=== PATIENT | male | born 1940 | race Caucasian/White ===

== ENCOUNTER 2023-06-23 05:21 | Emergency (ER) | payer OTHER, SELFPAY ==
[2023-06-23] VITALS (26 sets, daily range): BP systolic 85–149; BP diastolic 54–126; PULSE 78–178; RESP 14; TEMP 35.9; O2SAT 91–99
--- NOTE | 2023-06-23 06:09 | ED_ITS ---
HPI - General Adult General Chief complaint: Weakness <Carol Rodriguez MD - Last Filed: 06/23/23 23:55> Stated complaint: Nauseas Throwing up Blood/Pain <Carol Rodriguez MD - Last Filed: 06/23/23 23:55> Time Seen by Provider: 06/23/23 05:35 <Carol Rodriguez MD - Last Filed: 06/23/23 23:55> Source: patient and family <Carol Rodriguez MD - Last Filed: 06/23/23 23:55> Mode of arrival: EMS <Carol Rodriguez MD - Last Filed: 06/23/23 23:55> Limitations: physical limitation <Carol Rodriguez MD - Last Filed: 06/23/23 23:55> History of Present Illness HPI narrative: 82-year-old male with history of esophageal cancer, recent recurrent pneumonias and marked deconditioning presents to the emergency department. He tells me that he has from [place] and he has been managed mainly through [facility] in the last several months. He was diagnosed with esophageal cancer back in July, ultimately underwent resection, has been declining significantly since December. Last month, he was hospitalized a couple of times for aspiration pneumonias and has been made NPO. He has a J-tube in place and receives tube feedings. He has been pondering wanting to go on hospice for the last couple of weeks. He was told at his last discharge on June 06 that he will continue to aspirate even if he has the J-tube. He knows that he will continue getting recurrent pneumonias. He has made his peace with his health and would like to stop his medications, receive pain control and pass in the hospital. They have not looked into home hospice or an inpatient hospice center. His daughter accompanies him today and is respectful of his wishes though she is appropriately sad. He reports pain in the bilateral but area from his ulcers. Family agrees that he has been getting significantly weaker over the last few weeks. No bleeding has been noted, no vomiting or diarrhea. He is a heavy assist of 2 with all cares currently. Past medical history is notable for a flutter, still is on chronic anticoagulation for this. Esophageal cancer with resection, recurrent aspiration pneumonias, j-tube. Home medications are Tylenol, Eliquis, vitamin- D, digoxin, iron, metoprolol, pantoprazole. He is not on chronic pain medication or anti nausea medication. He has not been recently receiving any type of chemotherapy. His current nutrition plan is all through the j-tube. <Carol Rodriguez MD - Last Filed: 06/23/23 23:55> Related Data Home medications: Previous Rx's Medication Instructions Recorded zaleplon 5 mg capsule 5 mg PO QHS PRN sleep #14 caps 06/23/23 <Carol Rodriguez MD - Last Filed: 06/23/23 23:55> Allergies/adverse reactions: Allergies Allergy/AdvReac Type Severity Reaction Status Date / Time No Known Drug Allergies Allergy Unknown Unverified 01/13/23 15:31 <Carol Rodriguez MD - Last Filed: 06/23/23 23:55> [facility] Medical History: Medical History Hypertension ?I10 - Essential (primary) hypertension (ICD-10) Pacemaker ?Z95.0 - Presence of cardiac pacemaker (ICD-10) Moderate aortic stenosis ?I35.0 - Nonrheumatic aortic (valve) stenosis (ICD-10) Chronic anemia ?D64.9 - Anemia, unspecified (ICD-10) Gastric ulcer ?K25.9 - Gastric ulcer, unspecified as acute or chronic, without hemorrhage or perforation (ICD-10) 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.4 - Other artificial openings of gastrointestinal tract status (ICD-10) Pneumomediastinum ?J98.2 - Interstitial emphysema (ICD-10) Aspiration pneumonia ?J69.0 - Pneumonitis due to inhalation of food and vomit (ICD-10) Acute hypoxic respiratory failure ?J96.01 - Acute respiratory failure with hypoxia (ICD-10) Severe malnutrition ?E43 - Unspecified severe protein-calorie malnutrition (ICD-10) H/O sepsis ?Z86.19 - Personal history of other infectious and parasitic diseases (ICD- 10) Atrial flutter ?I48.92 - Unspecified atrial flutter (ICD-10) Esophagus cancer ?C15.9 - Malignant neoplasm of esophagus, unspecified (ICD-10) <Carol Rodriguez MD - Last Filed: 06/23/23 23:55> Social History: Social History Smoking Status: Never smoker Do you use any of these nicotine containing products: None Second hand tobacco smoke exposure: No How often do you have a drink containing alcohol: never AUDIT-C Alcohol total score: 0 Non-prescribed substance use: denies use service: No <Carol Rodriguez MD - Last Filed: 06/23/23 23:55> Exam Const: Vital Signs, click to edit/add: Vital Signs - 24 hr 06/23/23 05:32 06/23/23 05:34 06/23/23 05:35 Temperature 96.6 F L Pulse Rate 160 H 161 H Pulse Rate [Left P ulse Oximeter] 178 H Respiratory Rate 14 Blood Pressure 138/114 H Blood Pressure [Ri ght Upper Arm] 135/111 H Pulse Oximetry 99 93 93 Oxygen Delivery Me thod Room Air Oxygen Flow Rate 06/23/23 05:45 06/23/23 05:46 06/23/23 06:00 Temperature Pulse Rate 130 H 112 H 172 H Pulse Rate [Left P ulse Oximeter] Respiratory Rate Blood Pressure 149/126 H Blood Pressure [Ri ght Upper Arm] Pulse Oximetry 95 95 94 Oxygen Delivery Me thod Oxygen Flow Rate 06/23/23 06:01 06/23/23 06:02 06/23/23 06:15 Temperature Pulse Rate 154 H 94 Pulse Rate [Left P ulse Oximeter] Respiratory Rate Blood Pressure 144/124 H Blood Pressure [Ri ght Upper Arm] Pulse Oximetry 94 91 Oxygen Delivery Me thod Oxygen Flow Rate 06/23/23 06:17 06/23/23 06:30 06/23/23 06:32 Temperature Pulse Rate 92 92 91 Pulse Rate [Left P ulse Oximeter] Respiratory Rate Blood Pressure 96/62 97/58 L Blood Pressure [Ri ght Upper Arm] Pulse Oximetry 93 93 94 Oxygen Delivery Me thod Oxygen Flow Rate 06/23/23 06:45 06/23/23 06:47 06/23/23 06:48 Temperature Pulse Rate 85 96 92 Pulse Rate [Left P ulse Oximeter] Respiratory Rate Blood Pressure 100/54 L Blood Pressure [Ri ght Upper Arm] Pulse Oximetry 96 95 95 Oxygen Delivery Me thod Oxygen Flow Rate 06/23/23 07:00 06/23/23 07:01 06/23/23 07:15 Temperature Pulse Rate 78 98 94 Pulse Rate [Left P ulse Oximeter] Respiratory Rate Blood Pressure 92/57 L Blood Pressure [Ri ght Upper Arm] Pulse Oximetry 95 93 97 Oxygen Delivery Me thod Oxygen Flow Rate 06/23/23 07:16 06/23/23 07:17 06/23/23 07:30 Temperature Pulse Rate 92 91 93 Pulse Rate [Left P ulse Oximeter] Respiratory Rate Blood Pressure 98/59 L Blood Pressure [Ri ght Upper Arm] Pulse Oximetry 96 96 93 Oxygen Delivery Me thod Oxygen Flow Rate 06/23/23 07:32 06/23/23 07:33 06/23/23 09:15 Temperature Pulse Rate 92 90 Pulse Rate [Left P ulse Oximeter] Respiratory Rate Blood Pressure 100/60 Blood Pressure [Ri ght Upper Arm] Pulse Oximetry 94 96 97 Oxygen Delivery Me thod Nasal Cannula Oxygen Flow Rate 2 06/23/23 10:55 06/23/23 10:57 Temperature Pulse Rate Pulse Rate [Left P ulse Oximeter] 86 Respiratory Rate Blood Pressure 85/62 L Blood Pressure [Ri ght Upper Arm] Pulse Oximetry 97 Oxygen Delivery Me thod Nasal Cannula Oxygen Flow Rate 2 <Carol Rodriguez MD - Last Filed: 06/23/23 23:55> Vital Signs, click to edit/add: Vital Signs - 24 hr 06/23/23 05:32 06/23/23 05:34 06/23/23 05:35 Temperature 96.6 F L Pulse Rate 160 H 161 H Pulse Rate [Left P ulse Oximeter] 178 H Respiratory Rate 14 Blood Pressure 138/114 H Blood Pressure [Ri ght Upper Arm] 135/111 H Pulse Oximetry 99 93 93 Oxygen Delivery Me thod Room Air Oxygen Flow Rate 06/23/23 05:45 06/23/23 05:46 06/23/23 06:00 Temperature Pulse Rate 130 H 112 H 172 H Pulse Rate [Left P ulse Oximeter] Respiratory Rate Blood Pressure 149/126 H Blood Pressure [Ri ght Upper Arm] Pulse Oximetry 95 95 94 Oxygen Delivery Me thod Oxygen Flow Rate 06/23/23 06:01 06/23/23 06:02 06/23/23 06:15 Temperature Pulse Rate 154 H 94 Pulse Rate [Left P ulse Oximeter] Respiratory Rate Blood Pressure 144/124 H Blood Pressure [Ri ght Upper Arm] Pulse Oximetry 94 91 Oxygen Delivery Me thod Oxygen Flow Rate 06/23/23 06:17 06/23/23 06:30 06/23/23 06:32 Temperature Pulse Rate 92 92 91 Pulse Rate [Left P ulse Oximeter] Respiratory Rate Blood Pressure 96/62 97/58 L Blood Pressure [Ri ght Upper Arm] Pulse Oximetry 93 93 94 Oxygen Delivery Me thod Oxygen Flow Rate 06/23/23 06:45 06/23/23 06:47 06/23/23 06:48 Temperature Pulse Rate 85 96 92 Pulse Rate [Left P ulse Oximeter] Respiratory Rate Blood Pressure 100/54 L Blood Pressure [Ri ght Upper Arm] Pulse Oximetry 96 95 95 Oxygen Delivery Me thod Oxygen Flow Rate 06/23/23 07:00 06/23/23 07:01 06/23/23 07:15 Temperature Pulse Rate 78 98 94 Pulse Rate [Left P ulse Oximeter] Respiratory Rate Blood Pressure 92/57 L Blood Pressure [Ri ght Upper Arm] Pulse Oximetry 95 93 97 Oxygen Delivery Me thod Oxygen Flow Rate 06/23/23 07:16 06/23/23 07:17 06/23/23 07:30 Temperature Pulse Rate 92 91 93 Pulse Rate [Left P ulse Oximeter] Respiratory Rate Blood Pressure 98/59 L Blood Pressure [Ri ght Upper Arm] Pulse Oximetry 96 96 93 Oxygen Delivery Me thod Oxygen Flow Rate 06/23/23 07:32 06/23/23 07:33 06/23/23 09:15 Temperature Pulse Rate 92 90 Pulse Rate [Left P ulse Oximeter] Respiratory Rate Blood Pressure 100/60 Blood Pressure [Ri ght Upper Arm] Pulse Oximetry 94 96 97 Oxygen Delivery Me thod Nasal Cannula Oxygen Flow Rate 2 06/23/23 10:55 06/23/23 10:57 Temperature Pulse Rate Pulse Rate [Left P ulse Oximeter] 86 Respiratory Rate Blood Pressure 85/62 L Blood Pressure [Ri ght Upper Arm] Pulse Oximetry 97 Oxygen Delivery Me thod Nasal Cannula Oxygen Flow Rate 2 <Sintia Calix MD - Last Filed: 06/23/23 16:11> Vital Signs, click to edit/add: Vital Signs - 24 hr 06/23/23 05:32 06/23/23 05:34 06/23/23 05:35 Temperature 96.6 F L Pulse Rate 160 H 161 H Pulse Rate [Left P ulse Oximeter] 178 H Respiratory Rate 14 Blood Pressure 138/114 H Blood Pressure [Ri ght Upper Arm] 135/111 H Pulse Oximetry 99 93 93 Oxygen Delivery Me thod Room Air Oxygen Flow Rate 06/23/23 05:45 06/23/23 05:46 06/23/23 06:00 Temperature Pulse Rate 130 H 112 H 172 H Pulse Rate [Left P ulse Oximeter] Respiratory Rate Blood Pressure 149/126 H Blood Pressure [Ri ght Upper Arm] Pulse Oximetry 95 95 94 Oxygen Delivery Me thod Oxygen Flow Rate 06/23/23 06:01 06/23/23 06:02 06/23/23 06:15 Temperature Pulse Rate 154 H 94 Pulse Rate [Left P ulse Oximeter] Respiratory Rate Blood Pressure 144/124 H Blood Pressure [Ri ght Upper Arm] Pulse Oximetry 94 91 Oxygen Delivery Me thod Oxygen Flow Rate 06/23/23 06:17 06/23/23 06:30 06/23/23 06:32 Temperature Pulse Rate 92 92 91 Pulse Rate [Left P ulse Oximeter] Respiratory Rate Blood Pressure 96/62 97/58 L Blood Pressure [Ri ght Upper Arm] Pulse Oximetry 93 93 94 Oxygen Delivery Me thod Oxygen Flow Rate 06/23/23 06:45 06/23/23 06:47 06/23/23 06:48 Temperature Pulse Rate 85 96 92 Pulse Rate [Left P ulse Oximeter] Respiratory Rate Blood Pressure 100/54 L Blood Pressure [Ri ght Upper Arm] Pulse Oximetry 96 95 95 Oxygen Delivery Me thod Oxygen Flow Rate 06/23/23 07:00 06/23/23 07:01 06/23/23 07:15 Temperature Pulse Rate 78 98 94 Pulse Rate [Left P ulse Oximeter] Respiratory Rate Blood Pressure 92/57 L Blood Pressure [Ri ght Upper Arm] Pulse Oximetry 95 93 97 Oxygen Delivery Me thod Oxygen Flow Rate 06/23/23 07:16 06/23/23 07:17 06/23/23 07:30 Temperature Pulse Rate 92 91 93 Pulse Rate [Left P ulse Oximeter] Respiratory Rate Blood Pressure 98/59 L Blood Pressure [Ri ght Upper Arm] Pulse Oximetry 96 96 93 Oxygen Delivery Me thod Oxygen Flow Rate 06/23/23 07:32 06/23/23 07:33 06/23/23 09:15 Temperature Pulse Rate 92 90 Pulse Rate [Left P ulse Oximeter] Respiratory Rate Blood Pressure 100/60 Blood Pressure [Ri ght Upper Arm] Pulse Oximetry 94 96 97 Oxygen Delivery Me thod Nasal Cannula Oxygen Flow Rate 2 06/23/23 10:55 06/23/23 10:57 Temperature Pulse Rate Pulse Rate [Left P ulse Oximeter] 86 Respiratory Rate Blood Pressure 85/62 L Blood Pressure [Ri ght Upper Arm] Pulse Oximetry 97 Oxygen Delivery Me thod Nasal Cannula Oxygen Flow Rate 2 <Silvino Fisher DO - Last Filed: 06/23/23 19:10> Other: Cachectic, weak man. It is quite clear that even speaking is a massive struggle. He is very polite and respectful and every way I asked him about his end of life cares he reiterates that he would like to be on comfort cares and he would like something to drink. <Carol Rodriguez MD - Last Filed: 06/23/23 23:55> HENMT: Common normals: normocephalic <Carol Rodriguez MD - Last Filed: 06/23/23 23:55> Head and scalp: normocephalic <Carol Rodriguez MD - Last Filed: 06/23/23 23:55> Other: Dry mucous membranes. No obvious oral ulcers <Carol Rodriguez MD - Last Filed: 06/23/23 23:55> Eye: Other: Eyes are very sunken but normal pupils, extraocular movements. <Carol Rodriguez MD - Last Filed: 06/23/23 23:55> Neck & C-Spine: Common normals: no lymphadenopathy <Carol Rodriguez MD - Last Filed: 06/23/23 23:55> Resp: Other: Decreased respirations in the bases, increased respiratory effort. <Carol Rodriguez MD - Last Filed: 06/23/23 23:55> Cardio: Other: Initially tachycardic. When I was repositioning him, he seemed to convert out of his a flutter in into normal sinus rhythm at about 95. <Carol Rodriguez MD - Last Filed: 06/23/23 23:55> GI: Common normals: Normal to inspection, nondistended, normoactive bowel sounds present, soft to palpation and no hepatosplenomegaly <Carol Rodriguez MD - Last Filed: 06/23/23 23:55> Palpation: soft and no hepatosplenomegaly <Carol Rodriguez MD - Last Filed: 06/23/23 23:55> Other: J-tube with no leaking, surrounding redness or signs of irritation. <Carol Rodriguez MD - Last Filed: 06/23/23 23:55> Back & Pelvis: Other: Buttocks knees examining, thought best to do when we are transferring patient to medical unit rather than multiple exams as this will be very taxing on patient. <Carol Rodriguez MD - Last Filed: 06/23/23 23:55> Extremity: Common normals: no pedal edema <Carol Rodriguez MD - Last Filed: 06/23/23 23:55> Other: Capillary refill is around 3 seconds <Carol Rodriguez MD - Last Filed: 06/23/23 23:55> Neuro: Other: Global weakness but no specific deficits <Carol Rodriguez MD - Last Filed: 06/23/23 23:55> Psych: Attitude: calm and engaged <Carol Rodriguez MD - Last Filed: 06/23/23 23:55> Mood and affect: euthymic mood <Carol Rodriguez MD - Last Filed: 06/23/23 23:55> Insight: insight good <Carol Rodriguez MD - Last Filed: 06/23/23 23:55> Judgement: judgment good <Carol Rodriguez MD - Last Filed: 06/23/23 23:55> Skin: Narrative: Backside needs examining. Reported decubitus ulcers present prior to presentation need further clarification <Carol Rodriguez MD - Last Filed: 06/23/23 23:55> Course Course ED Course: Was able to pull some records from the [facility] [employer] system and his story is quite consistent with that reported in the medical documentation. He is an excellent candidate for hospice. I do not think that he is in his final hours of life and I do think that he probably has several days if not a week or so to live. I did discuss this with him. He would really like to pass in the hospital. I think we need a social work consult and a better plan. I do recommend that we stop all of his medications besides potentially the pantoprazole which is likely providing some comfort. I counseled him that he is allowed to eat and drink anything that he wants and he would like some liquids. We discussed potentially thickening liquids to make them easier to swallow and he will consider this. He is fully understanding as is his family that this may cause him to aspirate. We will discontinue G-tube feedings. I spoke with the overnight hospitalist and he agrees with the plan for admission to plan hospice care and has accepted admission. I do not think that there is any way I can get him home with the hospice team to meet with him at home even if it is later today based on his current clinical presentation. Laboratory studies and additional imaging will not be helpful in his care. <Carol Rodriguez MD - Last Filed: 06/23/23 23:55> Reevaluation(s) Time of Reevaluation #1: 07:57 <Carol Rodriguez MD - Last Filed: 06/23/23 23:55> Reevaluation #1: 90 minutes after the patient was accepted, the day hospitalist team is telling me that they do not have an available bed. This is 10 minutes left in my shift. He does not really have an acute admission need other than for hospice services. Therefore I have ordered a social worker psychiatric consult to see if we could potentially get him admitted to an inpatient hospice center instead. Will hand over care to day shift team. <Carol Rodriguez MD - Last Filed: 06/23/23 23:55> Reevaluation #2: Social service consult was done today. They are looking for a place to transfer the patient to at this time. We still have no available beds. Patient has had no acute needs. Care will be transferred to oncoming physician. <Sintia Calix MD - Last Filed: 06/23/23 16:11> Vital Signs Vital signs: Initial Vital Signs Temperature 96.6 F L 06/23/23 05:32 Temperature Source Temporal Artery Scan 06/23/23 05:32 Pulse Rate 178 H 06/23/23 05:32 Respiratory Rate 14 06/23/23 05:32 Blood Pressure 135/111 H 06/23/23 05:32 Blood Pressure Mean 119 H 06/23/23 05:32 Blood Pressure Position Semi-Fowlers 06/23/23 05:32 Pulse Oximetry 99 06/23/23 05:32 Oxygen Delivery Method Room Air 06/23/23 05:32 Vital Signs Temperature 96.6 F L 06/23/23 05:32 Pulse Rate 178 H 06/23/23 05:32 Respiratory Rate 14 06/23/23 05:32 Blood Pressure 135/111 H 06/23/23 05:32 Pulse Oximetry 99 06/23/23 05:32 Oxygen Delivery Method Room Air 06/23/23 05:32 Temperature 96.6 F L 06/23/23 05:32 Pulse Rate 86 06/23/23 10:55 Respiratory Rate 14 06/23/23 05:32 Blood Pressure 85/62 L 06/23/23 10:57 Pulse Oximetry 97 06/23/23 10:55 Oxygen Delivery Method Nasal Cannula 06/23/23 10:55 Oxygen Flow Rate 2 06/23/23 10:55 <Carol Rodriguez MD - Last Filed: 06/23/23 23:55> Initial Vital Signs Temperature 96.6 F L 06/23/23 05:32 Temperature Source Temporal Artery Scan 06/23/23 05:32 Pulse Rate 178 H 06/23/23 05:32 Respiratory Rate 14 06/23/23 05:32 Blood Pressure 135/111 H 06/23/23 05:32 Blood Pressure Mean 119 H 06/23/23 05:32 Blood Pressure Position Semi-Fowlers 06/23/23 05:32 Pulse Oximetry 99 06/23/23 05:32 Oxygen Delivery Method Room Air 06/23/23 05:32 Vital Signs Temperature 96.6 F L 06/23/23 05:32 Pulse Rate 178 H 06/23/23 05:32 Respiratory Rate 14 06/23/23 05:32 Blood Pressure 135/111 H 06/23/23 05:32 Pulse Oximetry 99 06/23/23 05:32 Oxygen Delivery Method Room Air 06/23/23 05:32 Temperature 96.6 F L 06/23/23 05:32 Pulse Rate 86 06/23/23 10:55 Respiratory Rate 14 06/23/23 05:32 Blood Pressure 85/62 L 06/23/23 10:57 Pulse Oximetry 97 06/23/23 10:55 Oxygen Delivery Method Nasal Cannula 06/23/23 10:55 Oxygen Flow Rate 2 06/23/23 10:55 <Sintia Calix MD - Last Filed: 06/23/23 16:11> Initial Vital Signs Temperature 96.6 F L 06/23/23 05:32 Temperature Source Temporal Artery Scan 06/23/23 05:32 Pulse Rate 178 H 06/23/23 05:32 Respiratory Rate 14 06/23/23 05:32 Blood Pressure 135/111 H 06/23/23 05:32 Blood Pressure Mean 119 H 06/23/23 05:32 Blood Pressure Position Semi-Fowlers 06/23/23 05:32 Pulse Oximetry 99 06/23/23 05:32 Oxygen Delivery Method Room Air 06/23/23 05:32 Vital Signs Temperature 96.6 F L 06/23/23 05:32 Pulse Rate 178 H 06/23/23 05:32 Respiratory Rate 14 06/23/23 05:32 Blood Pressure 135/111 H 06/23/23 05:32 Pulse Oximetry 99 06/23/23 05:32 Oxygen Delivery Method Room Air 06/23/23 05:32 Temperature 96.6 F L 06/23/23 05:32 Pulse Rate 86 06/23/23 10:55 Respiratory Rate 14 06/23/23 05:32 Blood Pressure 85/62 L 06/23/23 10:57 Pulse Oximetry 97 06/23/23 10:55 Oxygen Delivery Method Nasal Cannula 06/23/23 10:55 Oxygen Flow Rate 2 06/23/23 10:55 <Silvino Fisher DO - Last Filed: 06/23/23 19:10> Medications Administered Medications: Discontinued Medications Generic Name Dose Route Start Last Admin Trade Name Freq PRN Reason Stop Dose Admin Amiodarone HCl 100 mg 06/23/23 18:16 06/23/23 19:35 Amiodarone 200 Mg Tablet PO 06/23/23 18:17 100 mg ONCE ONE Administration Metoprolol Tartrate 25 mg 06/23/23 18:15 06/23/23 19:35 Metoprolol Tartrate 25 Mg Tablet PO 06/23/23 18:16 Not Given ONCE ONE <Carol Rodriguez MD - Last Filed: 06/23/23 23:55> Discontinued Medications Generic Name Dose Route Start Last Admin Trade Name Freq PRN Reason Stop Dose Admin Amiodarone HCl 100 mg 06/23/23 18:16 06/23/23 19:35 Amiodarone 200 Mg Tablet PO 06/23/23 18:17 100 mg ONCE ONE Administration Metoprolol Tartrate 25 mg 06/23/23 18:15 06/23/23 19:35 Metoprolol Tartrate 25 Mg Tablet PO 06/23/23 18:16 Not Given ONCE ONE <Sintia Calix MD - Last Filed: 06/23/23 16:11> Discontinued Medications Generic Name Dose Route Start Last Admin Trade Name Freq PRN Reason Stop Dose Admin Amiodarone HCl 100 mg 06/23/23 18:16 06/23/23 19:35 Amiodarone 200 Mg Tablet PO 06/23/23 18:17 100 mg ONCE ONE Administration Metoprolol Tartrate 25 mg 06/23/23 18:15 06/23/23 19:35 Metoprolol Tartrate 25 Mg Tablet PO 06/23/23 18:16 Not Given ONCE ONE <Silvino Fisher DO - Last Filed: 06/23/23 19:10> Medical Decision Making MDM Narrative Medical decision making narrative: Patient was signed out to me a the start of my shift pending placement for possible hospice or admission for hospice. Shortly after my shift started about 17:15 the patient's daughter came back. She states the patient now wants to go home more specifically his home. Previously he was living with his daughter. I spoke to the patient he states this is true and he would like to go home and wants to get going as soon as possible. His daughter was wondering if it could help set up Home Health as they cancer the today due to the expectations for hospice. She also states it was previously through her house but now would be to his own home. Due to the time anyway unable to do this but they state they will call in the morning. They also asked about sleep medication. I explained to him that if his condition any CP medication could cause side effects such as altered mental status or other concerning findings. They state they understand and would like for him to be comfortable. He is agreeable to this. I do not sense any pressure, went from the family for him to make a choice as all seems to be his own decision. Concerning he you was swelling to do hospice as the was a few hours ago I do find reasonable given medicine to help him sleep since that has been an issue he has been having. He will be discharged home with family. <Silvino Fisher DO - Last Filed: 06/23/23 19:10> Discharge Plan Discharge Clinical Impression: Weakness <Carol Rodriguez MD - Last Filed: 06/23/23 23:55> Patient Disposition: Home w/ Parent or Adult <Carol Rodriguez MD - Last Filed: 06/23/23 23:55> Condition: Stable <Carol Rodriguez MD - Last Filed: 06/23/23 23:55> Instructions: Weakness (ED) <Carol Rodriguez MD - Last Filed: 06/23/23 23:55> Additional Instructions: The medication I gave him for sleeping can cause issues with his mental status and confusion. Only take it right before he goes to sleep and when he plants sleep for about 7-8 hours. Set up home health care tomorrow. <Carol Rodriguez MD - Last Filed: 06/23/23 23:55> Activity Level: Up with assist <Carol Rodriguez MD - Last Filed: 06/23/23 23:55> Up with assist <Sintia Calix MD - Last Filed: 06/23/23 16:11> Up with assist <Silvino Fisher DO - Last Filed: 06/23/23 19:10> Discharge Diet: Regular <Carol Rodriguez MD - Last Filed: 06/23/23 23:55> Regular <Sintia Calix MD - Last Filed: 06/23/23 16:11> Regular <Silvino Fisher DO - Last Filed: 06/23/23 19:10> Prescriptions: New zaleplon 5 mg capsule 5 mg PO QHS PRN (Reason: sleep) Qty: 14 0RF Rx Instructions: must avoid high-fat meal/food immediately before taking dose <Carol Rodriguez MD - Last Filed: 06/23/23 23:55> Stand Alone Forms: [facility] Info Instructions <Carol Rodriguez MD - Last Filed: 06/23/23 23:55>
--- NOTE | 2023-06-23 07:41 | ED.NURSE ---
pt comfort cares, monitors removed. pt repositioned on L side for comfort. pt with weak cough. states pain with coughing.
--- NOTE | 2023-06-23 09:28 | ED.NURSE ---
Pt repositioned for comfort, head of the bed raised at patient request. Pt denies any other needs at this time. Call light in reach, pt reminded to use call light to call for assistance if needed.
--- NOTE | 2023-06-23 10:30 | PC.SOCIAL ---
Discharge planning: Met with pt regarding d/c plan. Pt is asking questions about both home hospice and placement for hospice. Pt has indicated he would want placement in [place] if hospice placement is needed. Pt gave permission for social contact worker to contact his daughter regarding plans. Called dtr and left message requesting call back. Called [facility] and requested call back about availability in [facility] for hosp[facility] placement. Awaiting call back . social contact worker to follow up as needed.
--- NOTE | 2023-06-23 10:59 | ED.NURSE ---
Boosted pt up in bed and repositioned from right side to left side, pillows behind pt's back and under left arm for support. Call light placed within reach.
--- NOTE | 2023-06-23 12:37 | ED.NURSE ---
Pt repositioned, head of bed raised at pt request for comfort. Pt denies any other needs at this time. Call light within reach.
--- NOTE | 2023-06-23 13:43 | PC.SOCIAL ---
Discharge planning: Spoke with dtr, Purvi, who confirms that pt need placement in a facility for hospice care and does not have the assistance required at home for home hospice. Dtr is requesting placement in a nursing facility in [facility] and [place], in that order. Dtr states she thinks pt will qualify for Medical Assistance but has not yet applied. 1. Called [facility] in [place] to ask about availability in care [facility] and [facility]. Awaiting call back. 2. Called [facility] and was told they have one male bed available and can accept pt's with Medical Assistance pending. Faxed over requested information and awaiting call back with decision on admit. 3. Called [facility] [phone] and was informed they have available beds for private pay but are not able to accept Medical assistance pending. 4. Called [facility] in [place] [phone] and left message requesting call back. skip pit worker to follow up as needed.
--- NOTE | 2023-06-23 14:02 | ED.NURSE ---
Pt voids into urinal, approx 125mLs dark jung urine. Pt boosted in bed and repositioned to lying on his right side, pillows behind back for support. Call light in reach.
--- NOTE | 2023-06-23 16:15 | ED.NURSE ---
Pt's son in room to visit. Pt requested water, provided with a cup of water.
[2023-06-23] MEDS: AMIODARONE 200 MG TABLET 100 MG PO (19:35)
== END 2023-06-23 19:47 | disposition home or self-care (01) ==
PROVIDERS: Emergency Provider Family Medicine
DX: R53.1 Weakness (principal)
CPT/HCPCS: 99283; 99284; A9270